=== PATIENT | female | born 2005 | race Caucasian/White ===

== ENCOUNTER 2024-11-10 14:11 | Emergency (ER) | payer BC ==
[2024-11-10 14:27] VITALS: BP 103/73; PULSE 95; RESP 17; TEMP 98.8; BMI 29.2
[2024-11-10] MEDS ORDERED: ACETAMINOPHEN INJECTION 100 ML ONE (14:34)
[2024-11-10] MEDS ORDERED: ONDANSETRON 4 MG/2 ML VIAL ONE (14:34)
[2024-11-10] MEDS: SODIUM CHLORIDE 0.9% 500 ML INFUS.BAG IV ONE (14:45)
[2024-11-10] MEDS: ONDANSETRON 4 MG/2 ML VIAL IVPUSH ONE (14:50)
[2024-11-10] MEDS: ACETAMINOPHEN 1000 MG/100 ML BAG IVPB ONE (14:55)
[2024-11-10 14:59] LABS: ABSOLUTE IMMATURE GRANULOCYTES 0.01 x10^3/uL (0.0-0.031); BASOPHILS # 0.02 x10^3/uL (0.01-0.08); EOSINOPHIL % 0.3 % (0.7-5.8); EOSINOPHILS # 0.02 x10^3/uL (0.04-0.36); MCHC 34.2 g/dl (32.2-35.5); MEAN CELL VOLUME 86.6 fl (79.4-94.8); MEAN PLT VOLUME 9.9 fl (9.4-12.3); MONOCYTE # 0.39 x10^3/uL (0.24-0.86); MONOCYTE % 5.0 % (4.7-12.5); RDW 12.2 % (12.1-16.5)
[2024-11-10 15:23] LABS: ALK PHOS 59.0 U/L (45-117); CO2 25.0 mmol/L (21-32); CREATININE 0.6 mg/dl (0.6-1.3); GLUCOSE,RANDOM 80.0 mg/dl (74-106); SGOT/AST 15.0 U/L (15-37); SGPT/ALT 16.0 U/L (7-52); TOT PROT 6.7 g/dl (6.4-8.2)
[2024-11-10 17:46] LABS: HIV INTERPRETATION NEGATIVE (NEGATIVE)
[2024-11-10 17:47] LABS: HCV DIAGNOSTIC IN-HOUSE W/RFLX NON-REACTIVE (NONREACTIVE)
== END 2024-11-10 18:14 | disposition home or self-care (01) ==
LOC: FER 14:11
PROC: 3E033NZ Introduction of Analgesics, Hypnotics, Sedatives into Peripheral Vein, Percutaneous Approach (ICD-10-PCS; principal; 2024-11-10)
PROC: 3E033GC Introduction of Other Therapeutic Substance into Peripheral Vein, Percutaneous Approach (ICD-10-PCS; 2024-11-10)
DX: R11.2 Nausea with vomiting, unspecified (principal); R10.13 Epigastric pain; R68.83 Chills (without fever)
CPT/HCPCS: 36415; 80053; 83605; 83690; 83735; 84100; 85025; 86803; 87389; 93005; 99284-25